=== PATIENT | male | born 1965 | race African-American/Black ===

== ENCOUNTER 2017-02-01 07:56 | Emergency (ER) | payer OTHER ==
[2017-02-01 06:32] LABS: BASOPHILS 0.2 %; BASOPHILS ABSOLUTE 0.01 10/3/uL (0.0-0.16); EOSINOPHILS 0 %; HEMATOCRIT 44.1 % (40.0-51.0); HEMOGLOBIN 14.6 g/dL (13.6-17.8); IMMATURE GRANULOCYTES 0.6 %; IMMATURE GRANULOCYTES ABSOLUTE 0.03 10/3/uL (0.0-0.11); LYMPHOCYTES 27.8 %; MEAN CORPUS HGB CONC 33.1 g/dL (32.0-36.0); MEAN CORPUSCULAR HEMOGLOB 28.9 pg (26.0-34.0); MEAN CORPUSCULAR VOLUME 87.3 fL (80-100); MEAN PLATELET VOLUME 10.6 fL (9.2-13.0); MONOCYTES 18.4 %; MONOCYTES ABSOLUTE 0.99 10/3/uL (0.21-1.20); NEUTROPHILS ABSOLUTE 2.86 10/3/uL (2.02-8.40); PLATELET COUNT 180 10/3/uL (150-400); RBC DISTRIBUTION WIDTH 13.7 % (12.0-16.0); RED CELL COUNT 5.05 10/6/uL (4.7-6.1); WHITE BLOOD CELLS 5.4 10/3/uL (4.5-10.5)
[2017-02-01 06:34] LABS: MANUAL DIFF NO %
[2017-02-01 06:47] LABS: A/G RATIO 0.7 (0.7-1.9); ALBUMIN 2.7 G/DL (3.5-5.0); ALKALINE PHOSPHATASE 78 U/L (45-117); BUN (BLOOD UREA NITROGEN) 14 MG/DL (6-23); CALCIUM, SERUM 7.9 MG/DL (8.5-10.4); CHLORIDE, SERUM 101 MMOL/L (96-112); CO2 (CARBON DIOXIDE) 29 MMOL/L (24-34); GFR AFRICAN AMERICAN 82 ML/MIN (>=60); GFR NON AFRICAN AMERICAN 71 ML/MIN (>=60); GLOBULIN 3.8 G/DL (2.5-4.1); GLUCOSE, SERUM 172 MG/DL (60-99); POTASSIUM, SERUM 4.2 MMOL/L (3.5-5.3); SGOT(AST) 43 U/L (5-40); SGPT(ALT) 35 U/L (5-65); SODIUM, SERUM 139 MMOL/L (135-148); TOTAL BILIRUBIN 0.3 MG/DL (0-1.2); TOTAL PROTEIN 6.5 G/DL (6.0-8.5)
[2017-02-01 07:21] LABS: ASCORBIC ACID (UR NOT ORDER) NEG (NEG); BILIRUBIN, URINE NEGATIVE (NEG); ER URINALYSIS TAT 0 Hrs 09 Mins; KETONE, URINE NEGATIVE (NEG); LEUKOCYTE ESTERASE(NOT OR NEG (NEG); NITRITE (URINE) NEG (NEG); WBC (NOT ORDERED) (RFLEX) 1 (0-5)
== END 2017-02-01 17:33 | disposition home or self-care (01) ==
LOC: ER 07:56
PROVIDERS: Specialist
DX: J18.9 Pneumonia, unspecified organism (principal); I10 Essential (primary) hypertension; E11.9 Type 2 diabetes mellitus without complications; F17.200 Nicotine dependence, unspecified, uncomplicated
CPT/HCPCS: 71010; 74176; 80053; 81001; 83690; 85025; 93005; 96374; 96375; 99285; J1980; J2405

== ENCOUNTER 2017-04-13 08:38 | Emergency (ER) | payer OTHER ==
[2017-04-13 08:23] LABS: BASOPHILS 0.3 %; BASOPHILS ABSOLUTE 0.03 10/3/uL (0.0-0.16); EOSINOPHILS 1.9 %; EOSINOPHILS ABSOLUTE 0.18 10/3/uL (0.0-0.53); HEMOGLOBIN 12.5 g/dL (13.6-17.8); IMMATURE GRANULOCYTES 0.8 %; IMMATURE GRANULOCYTES ABSOLUTE 0.08 10/3/uL (0.0-0.11); LYMPHOCYTES 25.6 %; LYMPHOCYTES ABSOLUTE 2.44 10/3/uL (0.67-4.30); MEAN CORPUS HGB CONC 32.6 g/dL (32.0-36.0); MEAN CORPUSCULAR HEMOGLOB 28.4 pg (26.0-34.0); MEAN PLATELET VOLUME 10.7 fL (9.2-13.0); MONOCYTES 8.9 %; MONOCYTES ABSOLUTE 0.85 10/3/uL (0.21-1.20); NEUTROPHILS 62.5 %; NEUTROPHILS ABSOLUTE 5.96 10/3/uL (2.02-8.40)
[2017-04-13 08:26] LABS: ER CBC TAT 0 Hrs 08 Mins; HEMATOCRIT 38.3 % (40.0-51.0); MANUAL DIFF NO %; PLATELET COUNT 262 10/3/uL (150-400); WHITE BLOOD CELLS 9.5 10/3/uL (4.5-10.5)
[2017-04-13 08:39] LABS: A/G RATIO 0.6 (0.7-1.9); ALKALINE PHOSPHATASE 70 U/L (45-117); BUN (BLOOD UREA NITROGEN) 12 MG/DL (6-23); CALCIUM, SERUM 8.2 MG/DL (8.5-10.4); CHLORIDE, SERUM 109 MMOL/L (96-112); CO2 (CARBON DIOXIDE) 31 MMOL/L (24-34); CREATININE 1.41 MG/DL (0.70-1.30); GFR AFRICAN AMERICAN 67 ML/MIN (>=60); GFR NON AFRICAN AMERICAN 58 ML/MIN (>=60); GLOBULIN 3.6 G/DL (2.5-4.1); GLUCOSE, SERUM 192 MG/DL (60-99); POTASSIUM, SERUM 3.8 MMOL/L (3.5-5.3); SGOT(AST) 35 U/L (5-40); SGPT(ALT) 30 U/L (5-65); SODIUM, SERUM 144 MMOL/L (135-148); TOTAL BILIRUBIN 0.2 MG/DL (0-1.2); TOTAL PROTEIN 5.6 G/DL (6.0-8.5)
== END 2017-04-13 09:33 | disposition home or self-care (01) ==
LOC: ER 08:38
PROVIDERS: Physician Assistant
DX: S91.302A Unspecified open wound, left foot, initial encounter (principal); I10 Essential (primary) hypertension; E10.9 Type 1 diabetes mellitus without complications; X58.XXXA Exposure to other specified factors, initial encounter
CPT/HCPCS: 73630-LT; 80053; 85025; 99283